=== PATIENT | female | born 1990 | race Caucasian/White ===

== ENCOUNTER 2016-11-08 15:57 | Emergency (ER) | payer SELFPAY ==
--- NOTE | 2016-11-08 16:45 | NUR ---
PATIENT LEFT WITHOUT BEING SEEN BY DR. MABRY. NO FURTHER CARE PROVIDED FOR PATIENT.
== END 2016-11-08 16:45 | disposition left against medical advice (07) ==
LOC: MED 15:57
DX: R11.10 Vomiting, unspecified (principal); Z53.21 Procedure and treatment not carried out due to patient leaving prior to being seen by health care provider